=== PATIENT | female | born 1935 | race African-American/Black ===

== ENCOUNTER 2016-07-27 20:39 | Emergency (ER) | payer MEDICARE, MEDICAID ==
[~2016-07-27] VITALS: Ht 180.3 cm; Wt 102.0 kg
[~2016-07-27 20:39] MED LIST: AMLO5TAB4 PO; ARIP10TA14 PO; ASPI-867 PO; BRIM5DRO EACHEYE; BUPR150T3 PO; CLOP75TA2 PO; DEXL30CA3 PO; DEXT15DR5 EACHEYE; DIVA250T PO; DOCU250C30 PO; DULO60CA44 PO; FAMO-134 PO; FERR-63 PO; FOLI-43 PO; FURO40TA2 PO; GABA-529 PO; HYDR-4135 PO; HYDR-523 PO; IBUP-1509 PO; LACT10SO PO; LEVO5TAB20 PO; LOSA1TAB15 PO; LOSA50TA20 PO; METO50TA5 PO; MULT-1146 PO; NASOI BOTHNSTRLS; SENN-39 PO; TRAM50TA3 PO
[2016-07-27] MEDS ORDERED: VANCOMYCIN 1 G PREMIX 200 ML IV ONE (21:30)
[2016-07-27] MEDS ORDERED: MORPHINE SULFATE 2 MG/ML CPJ (NOT FOR IM USE) IV ONE (21:30)
[2016-07-27] MEDS ORDERED: PIPERACILLIN/TAZ 3.375G PREMIX 50 ML IV ONE (21:30)
[2016-07-27 21:47] LABS: CHLORIDE 104 mEq/L (98-107); EOSINOPHILS % 2.3 % (0.0-5.0); HEMATOCRIT. 34.7 % (36.0-48.0); HEMOGLOBIN. 11.3 g/dL (12.0-16.0); INDEX HEMOLYSI 1 (1-3); INDEX ICTERIC 1 (1-4); INDEX LIPEMIC 1 (1-3); LYMPHOCYTES % 23.9 % (20.0-50.0); MEAN CORPUSCULAR HEMOGLOBIN 26.8 pg (28.0-32.0); MEAN CORPUSCULAR HGB CONC 32.5 g/dL (31.0-37.0); MEAN CORPUSCULAR VOLUME 82.5 fL (81.0-99.0); NEUTROPHILS % 61.8 % (40.0-76.0); PLATELET 187 x1000/uL (130-400); RED BLOOD CELL COUNT 4.21 mill/uL (4.2-5.4); RED CELL DISTRIBUTION WIDTH 14.1 % (11.6-14.6)
[2016-07-27 21:52] LABS: INR 1.1; PROTHROMBIN TIME 11.1 sec
[2016-07-27 21:57] LABS: ALANINE AMINOTRANSFERASE 13 IU/L (13-61); ANION GAP 11; CALCIUM 8.4 mg/dL (8.5-10.1); CARBON DIOXIDE 28 mEq/L (21-32); NT PRO B-TYPE NATRIURETIC PEP 605 pg/mL (5-125); UREA NITROGEN BLOOD 21 mg/dL (7-21); eGFR 40 mL/min (>60)
[2016-07-27 23:29] LABS: CLARITY URINE CLEAR (CLEAR); COLOR URINE YELLOW (YELLOW); GLUCOSE URINE NEGATIVE (NEGATIVE); KETONES URINE NEGATIVE (NEGATIVE); LEUKOCYTE ESTERASE URINE TRACE (NEGATIVE); NITRITE URINE NEGATIVE (NEGATIVE); OCCULT BLOOD URINE NEGATIVE (NEGATIVE); PH URINE 5.5 (4.5-8.0); PROTEIN URINE NEGATIVE (NEGATIVE); SPECIFIC GRAVITY URINE 1.012 (1.005-1.030); UROBILINOGEN URINE 0.2 E.U./dL (0.2-1.0)
[2016-07-27 23:54] LABS: SQUAMOUS EPITHELIAL CELL URINE FEW /lpf (RARE/1+)
[2016-07-27 23:55] LABS: BACTERIA URINE TRACE; RBC URINE 0-2 /hpf (0-2); WBC URINE 0-2 /hpf (0-2)
[2016-07-28 01:18] VITALS: BP 127/68
== END 2016-07-28 02:09 | disposition home or self-care (01) ==
LOC: ER 20:40
DX: M79.89 Other specified soft tissue disorders (principal); M79.604 Pain in right leg; N28.9 Disorder of kidney and ureter, unspecified; I25.10 Atherosclerotic heart disease of native coronary artery without angina pectoris; I10 Essential (primary) hypertension; Z88.8 Allergy status to other drugs, medicaments and biological substances; Z96.649 Presence of unspecified artificial hip joint; Z98.890 Other specified postprocedural states
CPT/HCPCS: 36415; 71010; 80053; 81001; 83605; 83880; 85025; 85610; 87040; 87086; 93005; 93971; 96365; 96367; 96375; 99285; J2270; J2543; J3370

== ENCOUNTER 2016-12-12 22:09 | Inpatient (IN) | payer MEDICARE, MEDICAID ==
[~2016-12-12] VITALS: Ht 170.2 cm; Wt 93.9 kg
[~2016-12-12 22:09] MED LIST changes: +ABIL10 PO; -ARIP10TA14 PO; +FURO-151 PO; -FURO40TA2 PO
[2016-12-13] MEDS ORDERED: ONDANSETRON HCL 4MG/2ML VIAL IV STA (00:34)
[2016-12-13] MEDS ORDERED: MORPHINE SULFATE 4 MG/ML CPJ (NOT FOR IM USE) IV STA (00:34)
[2016-12-13] MEDS ORDERED: ASPIRIN 81MG TABLET PO ONE (00:45)
[2016-12-13] MEDS ORDERED: FUROSEMIDE 40MG/4ML VIAL IV ONE (00:45)
[2016-12-13] MEDS ORDERED: LEVOFLOXACIN 750MG PREMIX 150 ML IV ONE (00:45)
[2016-12-13] MEDS ORDERED: VANCOMYCIN 1 G PREMIX 200 ML IV ONE (00:45)
[2016-12-13 01:29] LABS: EOSINOPHILS % 2.7 % (0.0-5.0); HEMATOCRIT. 36.5 % (36.0-48.0); HEMOGLOBIN. 11.8 g/dL (12.0-16.0); LYMPHOCYTES % 30.3 % (20.0-50.0); MEAN CORPUSCULAR VOLUME 80.6 fL (81.0-99.0); MEAN PLATELET VOLUME 9.3 fl (7.4-10.4); MONOCYTES % 10.3 % (2.0-8.0); NEUTROPHILS % 55.7 % (40.0-76.0); PLATELET 171 x1000/uL (130-400); RED BLOOD CELL COUNT 4.53 mill/uL (4.2-5.4); RED CELL DISTRIBUTION WIDTH 15.3 % (11.6-14.6)
[2016-12-13 01:40] LABS: CARBON DIOXIDE 29 mEq/L (21-32); CHLORIDE 105 mEq/L (98-107); ETHANOL BLOOD < 10 mg/dL; TROPONIN I < 0.02 ng/mL (0.00-0.04)
[2016-12-13 01:43] LABS: PROTHROMBIN TIME 10.7 sec
[2016-12-13 03:50] LABS: *AMPHETAMINES SCREEN URINE NEGATIVE (NEGATIVE); *BARBITURATES SCREEN URINE NEGATIVE (NEGATIVE); *BENZODIAZEPINES SCREEN URINE NEGATIVE (NEGATIVE); *COCAINE SCREEN URINE NEGATIVE (NEGATIVE); CANNABINOID URINE SCREEN NEGATIVE (NEGATIVE); OPIATES URINE SCREEN PRESUMTIVE POSITIVE (NEGATIVE); PHENCYCLIDINE URINE SCREEN NEGATIVE (NEGATIVE)
[2016-12-13 03:53] LABS: CLARITY URINE CLEAR (CLEAR); COLOR URINE YELLOW (YELLOW); GLUCOSE URINE NEGATIVE (NEGATIVE); KETONES URINE NEGATIVE (NEGATIVE); LEUKOCYTE ESTERASE URINE 1+ (NEGATIVE); NITRITE URINE NEGATIVE (NEGATIVE); OCCULT BLOOD URINE NEGATIVE (NEGATIVE); PH URINE 6.5 (4.5-8.0); PROTEIN URINE NEGATIVE (NEGATIVE); UROBILINOGEN URINE 0.2 E.U./dL (0.2-1.0)
[2016-12-13 04:22] LABS: METHADONE URINE SCREEN NEGATIVE (NEGATIVE)
[2016-12-13 08:00] VITALS: BP 138/75
[2016-12-13] MEDS ORDERED: ACETAMINOPHEN 325MG TABLET PO PRN (08:30)
[2016-12-13] MEDS ORDERED: IPRATROPIUM/ALBUTEROL 0.5-3(2.5)MG/3ML NEB INH PRN (08:30)
[2016-12-13] MEDS ORDERED: ONDANSETRON HCL 4MG/2ML VIAL IV PRN (08:30)
[2016-12-13] MEDS ORDERED: CLONIDINE 0.1MG TABLET PO PRN (08:30)
[2016-12-13] MEDS ORDERED: HYDROMORPHONE HCL/PF 2MG/ML CPJ IV PRN (08:30)
[2016-12-13] MEDS ORDERED: DEXTROSE 50% WATER 50ML SYRINGE IV PRN (09:45)
[2016-12-13] MEDS: CLOPIDOGREL 75MG TABLET PO SCH (09:47)
[2016-12-13] MEDS: GABAPENTIN 100MG CAPSULE PO SCH ×3 (09:47→18:00)
[2016-12-13] MEDS: DULOXETINE HCL 60MG DR CAPSULE PO SCH (09:47)
[2016-12-13] MEDS: FOLIC ACID 1MG TABLET PO SCH (09:47)
[2016-12-13] MEDS: LOSARTAN POTASSIUM 50 MG TABLET PO SCH (09:48)
[2016-12-13] MEDS: DOCUSATE SODIUM 250MG CAPSULE PO SCH (09:48)
[2016-12-13] MEDS: ASPIRIN 325MG EC TABLET PO SCH (09:48)
[2016-12-13] MEDS: FAMOTIDINE 20MG TABLET PO SCH ×2 (09:49→18:00)
[2016-12-13] MEDS: MULTIVITAMINS,THER W-MINERALS TABLET PO SCH (09:49)
[2016-12-13] MEDS: LORATADINE 10MG TABLET PO SCH (09:49)
[2016-12-13] MEDS: AMLODIPINE 5MG TABLET PO SCH (09:49)
[2016-12-13] MEDS: ENOXAPARIN 40MG/0.4ML SYR SUBCUT SCH (09:51)
[2016-12-13] MEDS: FERROUS SULFATE 325MG TABLET PO SCH ×3 (10:09→18:00)
[2016-12-13] MEDS: HYDROCODONE/ACETAMINOPHEN 5/325MG TABLET PO PRN (10:17)
[2016-12-13 11:38] VITALS: BP 138/75
[2016-12-13] MEDS: BLOOD SUGAR DIAGNOSTIC STRIP TEST SCH ×3 (11:45→21:00)
[2016-12-13 12:00] VITALS: BP 117/60
[2016-12-13] MEDS: CEFAZOLIN 1000MG PREMIX 50 ML IV SCH ×3 (12:03→23:38)
[2016-12-13] MEDS: BUPROPION HCL 150MG SR TABLET PO SCH ×2 (12:03→18:00)
[2016-12-13] MEDS: INSULIN LISPRO 100 UNITS/ML SUBCUT SCH ×3 (12:15→21:00)
[2016-12-13] MEDS: HYDRALAZINE HCL 50MG TABLET PO SCH ×2 (14:15→21:25)
[2016-12-13] MEDS: TRAMADOL 50MG TABLET PO PRN (15:13)
[2016-12-13 16:00] VITALS: BP 124/54
[2016-12-13] MEDS: BRIMONIDINE 0.2% OPHTH DROPS 5ML BOTHEYE SCH ×2 (18:00→21:25)
[2016-12-13 20:00] VITALS: BP 125/66
[2016-12-13] MEDS: ARIPIPRAZOLE 10MG TABLET PO SCH (21:25)
[2016-12-13] MEDS: DIVALPROEX SODIUM 250MG DR TABLET PO SCH (21:26)
[2016-12-14] VITALS (8 sets, daily range): BP systolic 104–135; BP diastolic 60–79
[2016-12-14] MEDS: CEFAZOLIN 1000MG PREMIX 50 ML IV SCH ×3 (05:07→22:20)
[2016-12-14] MEDS: HYDRALAZINE HCL 50MG TABLET PO SCH ×3 (05:07→22:40)
[2016-12-14 06:06] LABS: EOSINOPHILS % 2.9 % (0.0-5.0); HEMATOCRIT. 33.4 % (36.0-48.0); HEMOGLOBIN. 10.8 g/dL (12.0-16.0); MEAN CORPUSCULAR VOLUME 80.6 fL (81.0-99.0); MEAN PLATELET VOLUME 9.3 fl (7.4-10.4); MONOCYTES % 12.4 % (2.0-8.0); NEUTROPHILS % 55.7 % (40.0-76.0); PLATELET 156 x1000/uL (130-400); RED BLOOD CELL COUNT 4.14 mill/uL (4.2-5.4); RED CELL DISTRIBUTION WIDTH 15.1 % (11.6-14.6)
[2016-12-14] MEDS: BLOOD SUGAR DIAGNOSTIC STRIP TEST SCH ×4 (06:07→20:46)
[2016-12-14] MEDS: INSULIN LISPRO 100 UNITS/ML SUBCUT SCH ×4 (06:07→21:00)
[2016-12-14] MEDS: BRIMONIDINE 0.2% OPHTH DROPS 5ML BOTHEYE SCH ×3 (06:09→22:21)
[2016-12-14] MEDS: CLOPIDOGREL 75MG TABLET PO SCH (08:26)
[2016-12-14] MEDS: LORATADINE 10MG TABLET PO SCH (08:26)
[2016-12-14] MEDS: GABAPENTIN 100MG CAPSULE PO SCH ×3 (08:26→17:10)
[2016-12-14] MEDS: FOLIC ACID 1MG TABLET PO SCH (08:26)
[2016-12-14] MEDS: ASPIRIN 325MG EC TABLET PO SCH (08:26)
[2016-12-14] MEDS: BUPROPION HCL 150MG SR TABLET PO SCH ×2 (08:27→17:10)
[2016-12-14] MEDS: DOCUSATE SODIUM 250MG CAPSULE PO SCH (08:27)
[2016-12-14] MEDS: MULTIVITAMINS,THER W-MINERALS TABLET PO SCH (08:27)
[2016-12-14] MEDS: FAMOTIDINE 20MG TABLET PO SCH ×2 (08:27→17:10)
[2016-12-14] MEDS: DULOXETINE HCL 60MG DR CAPSULE PO SCH (08:27)
[2016-12-14] MEDS: ENOXAPARIN 40MG/0.4ML SYR SUBCUT SCH (08:27)
[2016-12-14] MEDS: LOSARTAN POTASSIUM 50 MG TABLET PO SCH (08:28)
[2016-12-14] MEDS: FERROUS SULFATE 325MG TABLET PO SCH ×3 (08:28→17:12)
[2016-12-14] MEDS: AMLODIPINE 5MG TABLET PO SCH (08:31)
[2016-12-14] MEDS: SODIUM CHLORIDE 0.45% 1,000 ML IV SCH ×3 (10:53→22:41)
[2016-12-14] MEDS ORDERED: IOHEXOL-350 100 ML BOTTLE ONE (13:11)
[2016-12-14] MEDS ORDERED: SODIUM CHLORIDE 0.9% 10ML VIAL ONE (13:11)
[2016-12-14] MEDS: DIVALPROEX SODIUM 250MG DR TABLET PO SCH (20:08)
[2016-12-14] MEDS: ARIPIPRAZOLE 10MG TABLET PO SCH (20:15)
[2016-12-14] MEDS: HYDROCODONE/ACETAMINOPHEN 5/325MG TABLET PO PRN (20:15)
[2016-12-14] MEDS ORDERED: ATORVASTATIN CALCIUM 10MG TABLET PO SCH (21:00)
[2016-12-14] MEDS: TRAMADOL 50MG TABLET PO PRN (23:46)
[2016-12-15] VITALS: BP 124/71
[2016-12-15 04:00] VITALS: BP 138/77
[2016-12-15] MEDS: BLOOD SUGAR DIAGNOSTIC STRIP TEST SCH ×2 (06:45→11:45)
[2016-12-15] MEDS: HYDRALAZINE HCL 50MG TABLET PO SCH ×2 (06:47→16:01)
[2016-12-15] MEDS: CEFAZOLIN 1000MG PREMIX 50 ML IV SCH (06:48)
[2016-12-15] MEDS: BRIMONIDINE 0.2% OPHTH DROPS 5ML BOTHEYE SCH (06:48)
[2016-12-15] MEDS: INSULIN LISPRO 100 UNITS/ML SUBCUT SCH ×2 (06:49→12:15)
[2016-12-15] MEDS: FERROUS SULFATE 325MG TABLET PO SCH ×2 (06:49→12:21)
[2016-12-15 08:30] VITALS: BP 152/101
[2016-12-15] MEDS: ENOXAPARIN 30MG/0.3ML SYR SUBCUT SCH ×2 (09:00→09:52)
[2016-12-15] MEDS: GABAPENTIN 100MG CAPSULE PO SCH ×2 (09:49→12:21)
[2016-12-15] MEDS: DULOXETINE HCL 60MG DR CAPSULE PO SCH (09:49)
[2016-12-15] MEDS: BUPROPION HCL 150MG SR TABLET PO SCH (09:50)
[2016-12-15] MEDS: DOCUSATE SODIUM 250MG CAPSULE PO SCH (09:50)
[2016-12-15] MEDS: ASPIRIN 325MG EC TABLET PO SCH (09:50)
[2016-12-15] MEDS: AMLODIPINE 5MG TABLET PO SCH (09:50)
[2016-12-15] MEDS: CLOPIDOGREL 75MG TABLET PO SCH (09:50)
[2016-12-15] MEDS: FOLIC ACID 1MG TABLET PO SCH (09:50)
[2016-12-15] MEDS: LOSARTAN POTASSIUM 50 MG TABLET PO SCH (09:51)
[2016-12-15] MEDS: FAMOTIDINE 20MG TABLET PO SCH (09:51)
[2016-12-15] MEDS: LORATADINE 10MG TABLET PO SCH (09:51)
[2016-12-15] MEDS: MULTIVITAMINS,THER W-MINERALS TABLET PO SCH (09:51)
[2016-12-15 12:13] VITALS: BP 145/90
[2016-12-15 13:16] VITALS: BP 145/90
[2016-12-15 16:13] VITALS: BP 180/87
== END 2016-12-15 16:35 | DRG 603 ==
LOC: ER 22:24 → EDBEDREQ 12-13 03:04 → EDBEDREQTM 12-13 03:04 → ENRESERV 12-13 07:28 → 5WST 12-13 08:10
PROVIDERS: ADMIT Internal Medicine Geriatric Medicine; ATTEND Internal Medicine Geriatric Medicine
DX: L03.115 Cellulitis of right lower limb (principal); E44.1 Mild protein-calorie malnutrition; D63.8 Anemia in other chronic diseases classified elsewhere; E78.5 Hyperlipidemia, unspecified; E86.0 Dehydration; F31.9 Bipolar disorder, unspecified; F41.1 Generalized anxiety disorder; G89.4 Chronic pain syndrome; I11.0 Hypertensive heart disease with heart failure; I25.10 Atherosclerotic heart disease of native coronary artery without angina pectoris; Z96.649 Presence of unspecified artificial hip joint; I50.9 Heart failure, unspecified; I73.9 Peripheral vascular disease, unspecified; J44.9 Chronic obstructive pulmonary disease, unspecified; M19.90 Unspecified osteoarthritis, unspecified site; M81.0 Age-related osteoporosis without current pathological fracture; Z95.5 Presence of coronary angioplasty implant and graft; Z88.8 Allergy status to other drugs, medicaments and biological substances; Z68.32 Body mass index [BMI] 32.0-32.9, adult
CPT/HCPCS: 36415; 71010; 73502; 75635; 80048; 80053; 80305; 81001; 82962; 83605; 83690; 83880; 84484; 85025; 85610; 87040; 93005; 93306; 93923; 93970; 96365; 96366; 96367; 96375; 97116; 97162; 99285; A4216; G0482; J0690; J1650; J1940; J1956; J2270; J2405; J3370; J7050; Q9967

== ENCOUNTER 2017-01-31 17:35 | Emergency (ER) | payer MEDICARE, MEDICAID ==
[~2017-01-31] VITALS: Ht 180.3 cm; Wt 102.0 kg
[~2017-01-31 17:35] MED LIST changes: +CLOP75TA16 PO; -CLOP75TA2 PO; -IBUP-1509 PO; +IBUP-2028 PO; -LEVO5TAB20 PO; +LEVO5TAB29 PO; +SENN-178 PO; -SENN-39 PO
[2017-01-31 20:07] LABS: BASOPHILS % 0.7 % (0.0-2.0); EOSINOPHILS % 1.5 % (0.0-5.0); HEMATOCRIT. 36.3 % (36.0-48.0); HEMOGLOBIN. 11.9 g/dL (12.0-16.0); LYMPHOCYTES % 19.2 % (20.0-50.0); MEAN CORPUSCULAR HEMOGLOBIN 26.4 pg (28.0-32.0); MEAN CORPUSCULAR VOLUME 80.5 fL (81.0-99.0); MEAN PLATELET VOLUME 9.4 fl (7.4-10.4); MONOCYTES % 8.3 % (2.0-8.0); NEUTROPHILS % 70.3 % (40.0-76.0); PLATELET 192 x1000/uL (130-400); RED BLOOD CELL COUNT 4.51 mill/uL (4.2-5.4); RED CELL DISTRIBUTION WIDTH 14.9 % (11.6-14.6)
[2017-01-31 20:12] LABS: PARTIAL THROMBOPLASTIN TIME 30.1 sec (23.4-31.0); PROTHROMBIN TIME 10.8 sec (9.4-11.6)
[2017-01-31 20:20] LABS: CHLORIDE 107 mEq/L (98-107)
[2017-01-31 20:31] LABS: CARBON DIOXIDE 29 mEq/L (21-32)
[2017-01-31 20:32] LABS: CREATINE KINASE 65 IU/L (26-192)
[2017-01-31 20:37] LABS: CREATINE KINASE MB FRACTION 1.7 ng/mL (0.5-3.6); TROPONIN I < 0.02 ng/mL (0.00-0.04)
[2017-01-31] MEDS ORDERED: TRAMADOL 50MG TABLET PO ONE (21:00)
[2017-01-31 21:33] VITALS: BP 162/82
[2017-01-31] MEDS ORDERED: CLONIDINE 0.2MG TABLET PO ONE (22:00)
== END 2017-01-31 22:42 | disposition left against medical advice (07) ==
LOC: ER 17:35
DX: R10.2 Pelvic and perineal pain (principal); L03.115 Cellulitis of right lower limb; R60.0 Localized edema; R73.9 Hyperglycemia, unspecified; I11.0 Hypertensive heart disease with heart failure; E86.0 Dehydration; I25.10 Atherosclerotic heart disease of native coronary artery without angina pectoris; M19.90 Unspecified osteoarthritis, unspecified site; E46 Unspecified protein-calorie malnutrition; Z68.31 Body mass index [BMI] 31.0-31.9, adult; Z96.649 Presence of unspecified artificial hip joint; Z79.82 Long term (current) use of aspirin; Z88.8 Allergy status to other drugs, medicaments and biological substances
CPT/HCPCS: 36415; 71010; 80053; 82550; 82553; 83690; 84484; 85025; 85610; 85730; 93005; 99285

== ENCOUNTER 2018-06-06 12:24 | Inpatient (IN) | payer MEDICARE, MEDICAID ==
[~2018-06-06] VITALS: Ht 175.3 cm; Wt 103.9 kg
[~2018-06-06 12:24] MED LIST changes: +ASA5EC PO; -ASPI-867 PO; +DIVA-73 PO; -DIVA250T PO; +METO-539 PO; -METO50TA5 PO
[2018-06-06] MEDS ORDERED: ONDANSETRON HCL 4MG/2ML INJ IV STA (14:23)
[2018-06-06] MEDS ORDERED: MORPHINE SULFATE 4 MG/ML CPJ (NOT FOR IM USE) IV STA (14:23)
[2018-06-06] MEDS ORDERED: VANCOMYCIN 1 G PREMIX 200 ML IV ONE (14:30)
[2018-06-06 15:41] LABS: BASOPHILS % 1.2 % (0.0-2.0); EOSINOPHILS % 2.2 % (0.0-5.0); HEMATOCRIT. 37.8 % (36.0-48.0); HEMOGLOBIN. 12.1 g/dL (12.0-16.0); LYMPHOCYTES % 16.5 % (20.0-50.0); MEAN CORPUSCULAR HEMOGLOBIN 26.1 pg (28.0-32.0); MEAN CORPUSCULAR VOLUME 81.7 fL (81.0-99.0); MEAN PLATELET VOLUME 9.5 fl (7.4-10.4); MONOCYTES % 12.4 % (2.0-8.0); NEUTROPHILS % 67.7 % (40.0-76.0); PLATELET 202 x1000/uL (130-400); RED BLOOD CELL COUNT 4.63 mill/uL (4.2-5.4); RED CELL DISTRIBUTION WIDTH 14.7 % (11.6-14.6)
[2018-06-06 15:45] LABS: CHLORIDE 106 mEq/L (98-107); PROTHROMBIN TIME 10.4 sec (9.1-11.1)
[2018-06-06] MEDS ORDERED: ACETAMINOPHEN 325MG TABLET PO PRN (15:45)
[2018-06-06] MEDS ORDERED: ONDANSETRON HCL 4MG/2ML INJ IV PRN (15:45)
[2018-06-06] MEDS ORDERED: HYDROCODONE/ACETAMINOPHEN 5/325MG TABLET PO NR (17:05)
[2018-06-06 23:00] VITALS: BP 155/79
[2018-06-07] VITALS: BP 155/79
[2018-06-07] MEDS: PIPERACILLIN/TAZ 3.375G PREMIX 50 ML IV SCH ×3 (00:12→14:07)
[2018-06-07] MEDS: IPRATROPIUM/ALBUTEROL 0.5-3(2.5)MG/3ML NEB HHN SCH ×5 (01:51→20:07)
[2018-06-07 04:00] VITALS: BP 103/58
[2018-06-07 08:00] VITALS: BP 132/46
[2018-06-07] MEDS ORDERED: SODIUM CHL 0.45% + KCL 20MEQ/L 1,000 ML IV SCH (08:30)
[2018-06-07] MEDS: LOSARTAN POTASSIUM 50 MG TABLET PO SCH (09:00)
[2018-06-07] MEDS: CLOPIDOGREL 75MG TABLET PO SCH (09:10)
[2018-06-07] MEDS: DOCUSATE SODIUM 250MG CAPSULE PO SCH (09:10)
[2018-06-07] MEDS: ENOXAPARIN 40MG/0.4ML SYR SUBCUT SCH (09:10)
[2018-06-07] MEDS: DEXT 5%/0.45% NACL KCL 20MEQ/L 1,000 ML IV SCH (12:52)
[2018-06-07 12:56] VITALS: BP 129/50
[2018-06-07] MEDS: HYDROCODONE/ACETAMINOPHEN 5/325MG TABLET PO PRN ×2 (14:09→23:23)
[2018-06-07 16:19] VITALS: BP 112/96
[2018-06-07 20:00] VITALS: BP 157/71
[2018-06-07] MEDS: FAMOTIDINE 20MG TABLET PO SCH (21:52)
[2018-06-07] MEDS: ATORVASTATIN CALCIUM 10MG TABLET PO SCH (21:52)
[2018-06-08] VITALS (7 sets, daily range): BP systolic 122–198; BP diastolic 71–108
[2018-06-08] MEDS: PIPERACILLIN/TAZ 3.375G PREMIX 50 ML IV SCH ×4 (00:27→22:53)
[2018-06-08] MEDS: DEXT 5%/0.45% NACL KCL 20MEQ/L 1,000 ML IV SCH (00:28)
[2018-06-08] MEDS: IPRATROPIUM/ALBUTEROL 0.5-3(2.5)MG/3ML NEB HHN SCH ×5 (04:14→20:00)
[2018-06-08] MEDS ORDERED: AMLODIPINE 5MG TABLET PO SCH (04:30)
[2018-06-08] MEDS: LOSARTAN POTASSIUM 50 MG TABLET PO SCH (04:34)
[2018-06-08 07:15] LABS: BASOPHILS % 0.6 % (0.0-2.0); EOSINOPHILS % 1.9 % (0.0-5.0); HEMATOCRIT. 35.9 % (36.0-48.0); HEMOGLOBIN. 11.3 g/dL (12.0-16.0); MEAN CORPUSCULAR HEMOGLOBIN 25.9 pg (28.0-32.0); MEAN CORPUSCULAR VOLUME 82.1 fL (81.0-99.0); MEAN PLATELET VOLUME 9.3 fl (7.4-10.4); MONOCYTES % 10.5 % (2.0-8.0); PLATELET 182 x1000/uL (130-400); RED BLOOD CELL COUNT 4.37 mill/uL (4.2-5.4); RED CELL DISTRIBUTION WIDTH 15.1 % (11.6-14.6)
[2018-06-08] MEDS: DOCUSATE SODIUM 250MG CAPSULE PO SCH (08:01)
[2018-06-08] MEDS: CLOPIDOGREL 75MG TABLET PO SCH (08:01)
[2018-06-08] MEDS: HYDROCODONE/ACETAMINOPHEN 5/325MG TABLET PO PRN ×2 (08:04→18:00)
[2018-06-08] MEDS: ENOXAPARIN 40MG/0.4ML SYR SUBCUT SCH (08:04)
[2018-06-08] MEDS ORDERED: LOSARTAN POTASSIUM 50 MG TABLET PO NR (08:15)
[2018-06-08] MEDS: HYDRALAZINE HCL 50MG TABLET PO SCH ×3 (08:26→21:07)
[2018-06-08] MEDS: SODIUM CHLORIDE 0.45% 1,000 ML IV SCH (09:55)
[2018-06-08] MEDS ORDERED: LIDOCAINE HCL 1% 20ML VIAL (Pyxis) INJ ONE (15:08)
[2018-06-08] MEDS ORDERED: IODIXANOL 320MG/ML 100 ML BOTTLE IV ONE (15:10)
[2018-06-08] MEDS ORDERED: MIDAZOLAM HCL 2 MG/2 ML VIAL ONE (15:37)
[2018-06-08] MEDS ORDERED: FENTANYL CITRATE/PF 50MCG/ML 2ML VIAL ONE (15:37)
[2018-06-08] MEDS ORDERED: ONDANSETRON HCL 4MG/2ML INJ IV PRN (16:15)
[2018-06-08] MEDS ORDERED: ACETAMINOPHEN 325MG TABLET PO PRN (16:15)
[2018-06-08] MEDS ORDERED: ATROPINE SULFATE 1MG/10ML SYR IV PRN (16:15)
[2018-06-08] MEDS ORDERED: DEXTROSE 50% WATER 50ML SYRINGE IV PRN ×2 (17:30→17:45)
[2018-06-08] MEDS: AMLODIPINE 5MG TABLET PO SCH (17:47)
[2018-06-08 20:01] LABS: EOSINOPHILS % 1.3 % (0.0-5.0); HEMATOCRIT. 34.9 % (36.0-48.0); HEMOGLOBIN. 10.9 g/dL (12.0-16.0); LYMPHOCYTES % 22.6 % (20.0-50.0); MEAN CORPUSCULAR HEMOGLOBIN 25.7 pg (28.0-32.0); MEAN CORPUSCULAR VOLUME 82.2 fL (81.0-99.0); MEAN PLATELET VOLUME 9.2 fl (7.4-10.4); MONOCYTES % 9.4 % (2.0-8.0); NEUTROPHILS % 65.7 % (40.0-76.0); PLATELET 209 x1000/uL (130-400); RED BLOOD CELL COUNT 4.25 mill/uL (4.2-5.4); RED CELL DISTRIBUTION WIDTH 15.1 % (11.6-14.6)
[2018-06-08 20:05] LABS: CHLORIDE 109 mEq/L (98-107)
[2018-06-08] MEDS ORDERED: ZOLPIDEM TARTRATE 5MG TABLET PO PRN (20:45)
[2018-06-08] MEDS: FAMOTIDINE 20MG TABLET PO SCH (20:53)
[2018-06-08] MEDS: ATORVASTATIN CALCIUM 10MG TABLET PO SCH (20:53)
[2018-06-08] MEDS: MORPHINE SULFATE 4 MG/ML CPJ (NOT FOR IM USE) IV PRN (20:54)
[2018-06-08] MEDS: BLOOD SUGAR DIAGNOSTIC STRIP TEST SCH (20:55)
[2018-06-08] MEDS: INSULIN LISPRO 100 UNITS/ML SUBCUT SCH (20:55)
[2018-06-08] MEDS ORDERED: BLOOD SUGAR DIAGNOSTIC STRIP TEST SCH (21:00)
[2018-06-08] MEDS ORDERED: INSULIN LISPRO 100 UNITS/ML SUBCUT SCH (21:00)
[2018-06-09] VITALS (9 sets, daily range): BP systolic 109–144; BP diastolic 60–91
[2018-06-09] MEDS: MORPHINE SULFATE 4 MG/ML CPJ (NOT FOR IM USE) IV PRN (00:44)
[2018-06-09] MEDS ORDERED: NON FORMULARY PATIENT HOME MED XX SCH (00:45)
[2018-06-09] MEDS: IPRATROPIUM/ALBUTEROL 0.5-3(2.5)MG/3ML NEB HHN SCH ×3 (01:30→14:05)
[2018-06-09] MEDS: SODIUM CHLORIDE 0.45% 1,000 ML IV SCH ×2 (03:20→10:22)
[2018-06-09] MEDS: AMLODIPINE 5MG TABLET PO SCH (06:27)
[2018-06-09] MEDS: PIPERACILLIN/TAZ 3.375G PREMIX 50 ML IV SCH (06:27)
[2018-06-09] MEDS: HYDRALAZINE HCL 50MG TABLET PO SCH (06:27)
[2018-06-09] MEDS: INSULIN LISPRO 100 UNITS/ML SUBCUT SCH ×2 (06:29→11:23)
[2018-06-09] MEDS: BLOOD SUGAR DIAGNOSTIC STRIP TEST SCH ×2 (06:29→11:23)
[2018-06-09 06:54] LABS: BASOPHILS % 0.8 % (0.0-2.0); EOSINOPHILS % 0.9 % (0.0-5.0); HEMATOCRIT. 32.7 % (36.0-48.0); HEMOGLOBIN. 10.4 g/dL (12.0-16.0); LYMPHOCYTES % 14.9 % (20.0-50.0); MEAN CORPUSCULAR HEMOGLOBIN 26.3 pg (28.0-32.0); MEAN CORPUSCULAR VOLUME 82.5 fL (81.0-99.0); MEAN PLATELET VOLUME 9.6 fl (7.4-10.4); MONOCYTES % 9.1 % (2.0-8.0); NEUTROPHILS % 74.3 % (40.0-76.0); PLATELET 210 x1000/uL (130-400); RED BLOOD CELL COUNT 3.96 mill/uL (4.2-5.4)
[2018-06-09] MEDS: DOCUSATE SODIUM 250MG CAPSULE PO SCH (08:43)
[2018-06-09] MEDS: CLOPIDOGREL 75MG TABLET PO SCH (08:43)
[2018-06-09] MEDS: ENOXAPARIN 40MG/0.4ML SYR SUBCUT SCH (08:44)
[2018-06-09] MEDS ORDERED: LOSARTAN POTASSIUM 100 MG TABLET PO SCH (09:00)
[2018-06-09] MEDS ORDERED: CLOPIDOGREL 75MG TABLET PO SCH (09:00)
[2018-06-09] MEDS: HYDROCODONE/ACETAMINOPHEN 5/325MG TABLET PO PRN (12:49)
[2018-06-09] MEDS ORDERED: EZETIMIBE 10MG TABLET PO SCH (21:00)
[2018-06-09] MEDS ORDERED: ATORVASTATIN CALCIUM 20MG TABLET PO SCH (21:00)
== END 2018-06-09 14:30 | disposition home health service (06) | DRG 683 ==
LOC: ER 14:29 → 8WST 16:16 → EDBEDREQTM 16:18 → EDBEDREQ 16:18 → ENRESERV 20:29 → 8WST 06-07 14:58 → 3WST 06-08 16:25
PROVIDERS: ADMIT Internal Medicine Geriatric Medicine; ATTEND Internal Medicine Geriatric Medicine
PROC: B41G1ZZ Fluoroscopy of Left Lower Extremity Arteries using Low Osmolar Contrast (ICD-10-PCS; principal; 2018-06-08)
DX: N17.9 Acute kidney failure, unspecified (principal); L03.116 Cellulitis of left lower limb; L97.929 Non-pressure chronic ulcer of unspecified part of left lower leg with unspecified severity; E44.1 Mild protein-calorie malnutrition; E11.622 Type 2 diabetes mellitus with other skin ulcer; D63.8 Anemia in other chronic diseases classified elsewhere; M19.90 Unspecified osteoarthritis, unspecified site; E66.01 Morbid (severe) obesity due to excess calories; I73.9 Peripheral vascular disease, unspecified; E11.51 Type 2 diabetes mellitus with diabetic peripheral angiopathy without gangrene; E78.5 Hyperlipidemia, unspecified; F03.90 Unspecified dementia, unspecified severity, without behavioral disturbance, psychotic disturbance, mood disturbance, and anxiety; F60.9 Personality disorder, unspecified; F31.9 Bipolar disorder, unspecified; I11.9 Hypertensive heart disease without heart failure; I25.10 Atherosclerotic heart disease of native coronary artery without angina pectoris; I77.1 Stricture of artery; I99.8 Other disorder of circulatory system; Z96.649 Presence of unspecified artificial hip joint; K21.9 Gastro-esophageal reflux disease without esophagitis; M48.00 Spinal stenosis, site unspecified; W05.0XXA Fall from non-moving wheelchair, initial encounter; Y93.89 Activity, other specified; I25.2 Old myocardial infarction; Y92.89 Other specified places as the place of occurrence of the external cause; Y99.8 Other external cause status; Z79.02 Long term (current) use of antithrombotics/antiplatelets; Z79.82 Long term (current) use of aspirin; Z79.899 Other long term (current) drug therapy; Z95.5 Presence of coronary angioplasty implant and graft; Z88.8 Allergy status to other drugs, medicaments and biological substances; Z68.33 Body mass index [BMI] 33.0-33.9, adult
CPT/HCPCS: 36246; 36415; 71045; 75710; 80048; 83605; 83880; 84484; 86850; 86900; 86920; 93005; 93923; 93971; 94640; 96365; 96375; 97162; 99285; C1725; C1760; C1769; C1893; J1644; J1650; J2250; J2270; J2405; J2543; J3010; J3370; J3490; J7050; J7620; Q9967; A4315